=== PATIENT | female | born 1995 | race African-American/Black ===

== ENCOUNTER 2020-09-29 06:27 | Emergency (ER) | payer MEDICAID ==
[~2020-09-29] VITALS: Ht 162.6 cm; Wt 90.0 kg
[2020-09-29 06:45] VITALS: BP 124/78
[2020-09-29] MEDS ORDERED: SODIUM CHLORIDE 0.9% 1,000 ML IV ONE (07:15)
[2020-09-29 08:57] LABS: HEMATOCRIT. 41.6 % (36.0-48.0); HEMOGLOBIN. 13.6 g/dL (12.0-16.0); MEAN CORPUSCULAR VOLUME 85.8 fL (81.0-99.0); MEAN PLATELET VOLUME 7.8 fl (7.4-10.4); PLATELET 310 x1000/uL (130-400); RED BLOOD CELL COUNT 4.85 mill/uL (4.2-5.4); RED CELL DISTRIBUTION WIDTH 12.6 % (11.6-14.6)
[2020-09-29 09:06] LABS: HCG SCREEN NEGATIVE
[2020-09-29 09:07] LABS: CHLORIDE 106 mEq/L (98-107)
[2020-09-29 10:12] LABS: PLATELET ESTIMATE NORMAL
== END 2020-09-29 09:27 | disposition home or self-care (01) ==
LOC: ER 06:49
DX: R05 Cough (principal); U07.1 COVID-19
CPT/HCPCS: 36415; 71045; 80053; 83605; 83880; 84484; 84703; 85025; 93005; 96360; 99285; J7030